=== PATIENT | male | born 1955 | race African-American/Black ===

== ENCOUNTER 2017-10-24 06:30 | Day surgery (SDC) | payer MEDICARE ==
[2017-10-22 09:38] VITALS: BMI 27.8
[2017-10-24 07:11] VITALS: TEMP 98
[2017-10-24] MEDS: LACTATED RINGERS 1,000 ML IV SCH ×2 (07:21→07:34)
[2017-10-24 07:22] LABS: Glucose,Whole Blood 102 mg/dL (75-99)
[2017-10-24 07:49] VITALS: RESP 18
--- NOTE | 2017-10-24 08:00 | P.GSHP ---
History of Present Illness H&P Date: 10/24/17 Chief Complaint: GI bleed This a 62-year-old male referred from Dr. Marcos Pelaez. Patient presents today for colonoscopy. He's had issues with rectal bleeding the past. The patient is requesting that he have anesthesia for procedure. Past Medical History Past Medical History: Diabetes Mellitus, GERD/Reflux, Hyperlipidemia, Hypertension, Prostate Disorder, Skin Disorder Additional Past Medical History / Comment(s): psoriasis, diet control diabetic, History of Any Multi-Drug Resistant Organisms: None Reported Past Surgical History: Hernia Repair, Orthopedic Surgery Additional Past Surgical History / Comment(s): left foot bunionectomy, rt ankle surgery, rectal surgery for prolapsed rectum, Past Anesthesia/Blood Transfusion Reactions: No Reported Reaction Smoking Status: Former smoker - Past Family History Mother Family Medical History: No Reported History Medications and Allergies Home Medications Medication Instructions Recorded Confirmed Type Cholecalciferol [Vitamin D3] 400 unit PO DAILY 10/22/17 10/24/17 History Finasteride [Proscar] 5 mg PO DAILY 10/22/17 10/24/17 History Hydrocodone/Acetaminophen 1 each PO DIRECTED PRN 10/22/17 10/24/17 History [Hydrocodon-Acetaminophen 5-325] Multivitamins, Thera [Multivitamin 1 tab PO DAILY 10/22/17 10/24/17 History (formulary)] Omega3/Dha/Epa/Fish Oil/Vit D3 1 each PO DAILY 10/22/17 10/24/17 History [Fish Oil-Vit D3 Softgel] Simvastatin [Zocor] 20 mg PO HS 10/22/17 10/24/17 History Tamsulosin [Flomax] 0.4 mg PO DAILY 10/22/17 10/24/17 History Ubidecarenone [Co Q-10] 50 mg PO DAILY 10/22/17 10/24/17 History Vitamin E 100 unit PO DAILY 10/22/17 10/24/17 History amLODIPine [Norvasc] 10 mg PO DAILY 10/22/17 10/24/17 History Allergies Allergy/AdvReac Type Severity Reaction Status Date / Time aspirin Allergy Unknown Verified 10/22/17 09:20 latex Allergy Rash/Hives Verified 10/22/17 09:38 shellfish derived [Shellfish] Allergy Swelling,it Verified 10/22/17 09:20 suleman tramadol Allergy Unknown Verified 10/22/17 09:20 Surgical - Exam Vital Signs Temp Pulse Resp BP Pulse Ox 98.0 F 68 16 145/88 99 10/24/17 07:08 10/24/17 07:08 10/24/17 07:08 10/24/17 07:08 10/24/17 07:08 - General well developed, no distress - Eyes PERRL - ENT normal pinna - Neck no masses - Respiratory normal expansion - Cardiovascular Rhythm: regular - Abdomen Abdomen: soft, non tender Results - Labs Abnormal Lab Results - Last 24 Hours (Table) 10/24/17 Range/Units 07:19 POC Glucose (mg/dL) 102 H (75-99) mg/dL Assessment and Plan Assessment: History of GI bleed. We'll perform colonoscopy.
--- NOTE | 2017-10-24 08:13 | P.OP ---
Date of Procedure: 10/24/17 Preoperative Diagnosis: GI bleed Postoperative Diagnosis: Diverticulosis Internal hemorrhoids Procedure(s) Performed: Colonoscopy Anesthesia: none Surgeon: Leo Eng Pathology: none sent Condition: stable Description of Procedure: The patient's placed on the endoscopy table lateral position. The patient did not wish to have any anesthesia. Digital rectal exam was performed which revealed a few internal hemorrhoids. The flexible colonoscope was then placed patient anus and passed throughout the entire colon. The ileocecal valve was visualized. The cecum, ascending and transverse colon appeared normal. In the descending and sigmoid colon there was a few scattered diverticula. Scope was then brought back the rectum and this appeared normal. The scope was retroflexed and there was some minimal internal hemorrhoids. Scope was withdrawn for patient.
[2017-10-24 08:22] VITALS: BP 138/85; PULSE 68
== END 2017-10-24 08:39 | disposition home or self-care (01) ==
LOC: ORWHC2ENDO 06:30
PROVIDERS: ATTEND Surgery
DX: K62.5 Hemorrhage of anus and rectum (principal); K57.30 Diverticulosis of large intestine without perforation or abscess without bleeding; K64.8 Other hemorrhoids; E11.9 Type 2 diabetes mellitus without complications; I10 Essential (primary) hypertension; K21.9 Gastro-esophageal reflux disease without esophagitis; E78.5 Hyperlipidemia, unspecified; N42.9 Disorder of prostate, unspecified; L40.9 Psoriasis, unspecified; Z87.891 Personal history of nicotine dependence; Z79.899 Other long term (current) drug therapy; Z88.6 Allergy status to analgesic agent; Z91.040 Latex allergy status; Z91.013 Allergy to seafood
CPT/HCPCS: 45378

== ENCOUNTER → 2017-11-17 | Outpatient (CLI) | payer MEDICARE ==
--- NOTE | 2017-11-17 16:15 | XR ---
EXAMINATION TYPE: XR knee complete LT DATE OF EXAM: 11/17/2017 COMPARISON: NONE HISTORY: 62-year-old male with chronic left knee pain TECHNIQUE: 3 views FINDINGS: [id number] degenerative joint space narrowing in the medial compartment with marginal spurring. Degenerative spurring in the patellofemoral compartment as well with small knee joint effusion. Nons pecific anterior soft tissue swelling. No acute fracture, subluxation, or dislocation. IMPRESSION: 1. At least mild to moderate medial compartmental osteoarthrosis and mild within the patellofemoral c ompartment. Weightbearing and merchant's view could better evaluate the degree of cartilage and joint space narrowing. 2. Small knee joint effusion is nonspecific. 3. No acute osseous abnormality seen.
== END | disposition home or self-care (01) ==
LOC: RADXRMAIN 15:12
PROVIDERS: ATTEND Family Medicine
DX: M17.12 Unilateral primary osteoarthritis, left knee (principal)

== ENCOUNTER 2020-02-10 07:10 | Day surgery (SDC) | payer MEDICARE ==
[2020-02-08 17:24] VITALS: BMI 28.1
[~2020-02-10 07:10] MED LIST: LACTATED RINGERS 1,000 ML IV SCH
--- NOTE | 2020-02-10 07:55 | P.GSHP ---
History of Present Illness H&P Date: 02/10/20 Chief Complaint: Screening colonoscopy Is a 64-year-old male presents today for screening colonoscopy. Patient is known history of hemorrhoids. Past Medical History Past Medical History: Diabetes Mellitus, GERD/Reflux, Hyperlipidemia, Hypertension, Prostate Disorder, Skin Disorder Additional Past Medical History / Comment(s): psoriasis, diet control diabetic History of Any Multi-Drug Resistant Organisms: None Reported Past Surgical History: Hernia Repair, Orthopedic Surgery Additional Past Surgical History / Comment(s): left foot bunionectomy, rt ankle surgery, rectal surgery for prolapsed rectum, Past Anesthesia/Blood Transfusion Reactions: No Reported Reaction Past Psychological History: No Psychological Hx Reported Smoking Status: Former smoker Past Alcohol Use History: Occasional Additional Past Alcohol Use History / Comment(s): quit smoking 11/16/2008, started smoking age 21, 1 PPD Past Drug Use History: None Reported - Past Family History Mother Family Medical History: No Reported History Medications and Allergies Home Medications Medication Instructions Recorded Confirmed Type Finasteride [Proscar] 5 mg PO Q48H 10/22/17 02/08/20 History Tamsulosin [Flomax] 0.4 mg PO Q48H 10/22/17 02/08/20 History amLODIPine [Norvasc] 10 mg PO DAILY 10/22/17 02/08/20 History Atorvastatin (Unknown Dose) 0.5 tab PO HS 02/08/20 History Pantoprazole Sodium [Protonix] 20 mg PO HS 02/08/20 02/08/20 History Allergies Allergy/AdvReac Type Severity Reaction Status Date / Time aspirin Allergy Unknown Verified 02/10/20 07:28 latex Allergy Rash/Hives Verified 02/10/20 07:28 tramadol Allergy Unknown Verified 02/10/20 07:28 Surgical - Exam Vital Signs Temp Pulse Resp BP Pulse Ox 97.2 F L 91 16 129/82 100 02/10/20 07:29 02/10/20 07:29 02/10/20 07:29 02/10/20 07:29 02/10/20 07:29 - General well developed, well nourished, no distress - Eyes PERRL, normal ocular movement - ENT normal pinna - Neck no masses - Respiratory normal expansion - Cardiovascular Rhythm: regular - Abdomen Abdomen: soft, non tender Assessment and Plan Assessment: We'll perform screening colonoscopy
--- NOTE | 2020-02-10 08:12 | P.OP ---
Date of Procedure: 02/10/20 Preoperative Diagnosis: Screening colonoscopy Postoperative Diagnosis: Internal hemorrhoids Procedure(s) Performed: Colonoscopy Anesthesia: MAC, none Surgeon: Leo Eng Pathology: none sent Condition: stable Disposition: PACU Description of Procedure: The patient's placed on the endoscopy table in the lateral position. He received IV sedation. Digital rectal exam performed revealed internal hemorrhoids. The flexible colonoscope was then placed patient anus passed throughout the entire colon. The ileocecal valve was visualized. The cecum, ascending and transverse colon appeared normal. The descending and sigmoid colon. Normal. Scope was brought back the rectum this appeared normal. Scope was brought through the anus and internal hemorrhoids noted. Scope was then from the patient.
[2020-02-10 15:30] LABS: Glucose,Whole Blood 86 mg/dL (75-99)
[2020-02-11 08:58] VITALS: BP 122/68; PULSE 70; RESP 22; TEMP 97.2
== END 2020-02-10 08:44 | disposition home or self-care (01) ==
LOC: ORWHC2ENDO 07:10
PROVIDERS: ATTEND Surgery
DX: Z12.11 Encounter for screening for malignant neoplasm of colon (principal); K64.8 Other hemorrhoids; I10 Essential (primary) hypertension; K21.9 Gastro-esophageal reflux disease without esophagitis; N40.0 Benign prostatic hyperplasia without lower urinary tract symptoms; E11.9 Type 2 diabetes mellitus without complications; E78.5 Hyperlipidemia, unspecified; L40.9 Psoriasis, unspecified; Z87.19 Personal history of other diseases of the digestive system; E66.9 Obesity, unspecified; E78.00 Pure hypercholesterolemia, unspecified; M15.9 Polyosteoarthritis, unspecified; M17.10 Unilateral primary osteoarthritis, unspecified knee; M19.042 Primary osteoarthritis, left hand; Z98.890 Other specified postprocedural states; Z87.891 Personal history of nicotine dependence; Z79.899 Other long term (current) drug therapy; Z88.6 Allergy status to analgesic agent; Z91.040 Latex allergy status; Z88.5 Allergy status to narcotic agent; Z91.013 Allergy to seafood; Z68.31 Body mass index [BMI] 31.0-31.9, adult; Z86.73 Personal history of transient ischemic attack (TIA), and cerebral infarction without residual deficits; Z86.19 Personal history of other infectious and parasitic diseases
CPT/HCPCS: 45378